=== PATIENT | female | born 1970 | race Caucasian/White ===

== ENCOUNTER 2017-07-19 16:39 | Outpatient (CLI) | payer MEDICARE, OTHER ==
[2017-07-19 17:29] LABS: #Eosinphils 0.2 thou/uL (0.0-0.7); #Lymphocytes 2.4 thou/uL (1.20-3.40); #Monocytes 0.5 thou/uL (0.11-0.59); #Neutrophils 3.5 thou/uL (1.40-6.50); %Basophils 0.6 % (0.0-1.0); %Eosinophils 2.3 % (0.0-10.0); %Lymphocytes 36.6 % (21.0-51.0); %Monocytes 7.2 % (0.0-10.0); Hematocrit 38.1 % (36.0-47.0); Mean Platelet Volume 7.6 fL (7.4-10.4); Red Blood Cell (RBC) Count 4.48 mill/uL (4.20-5.40); White Blood Cell (WBC) Count 6.6 thou/uL (4.8-10.8)
[2017-07-19 17:51] LABS: Anion Gap 13 mmol/L (10-20); BUN (Urea Nitrogen) 20 mg/dL (7.0-18.7); Calc. Creatinine Clearance 0 mL/min (70-130); Calcium 9.1 mg/dL (7.8-10.44); Carbon Dioxide 26 mmol/L (22-29); Chloride 106 mmol/L (98-107); Estimated GFR-MDRD Greater than 90
== END 2017-07-19 16:40 | disposition home or self-care (01) ==
LOC: LABBT 16:39
PROVIDERS: ATTEND Orthopaedic Surgery
DX: Z01.818 Encounter for other preprocedural examination (principal); M75.121 Complete rotator cuff tear or rupture of right shoulder, not specified as traumatic; M21.821 Other specified acquired deformities of right upper arm
CPT/HCPCS: 80048; 85025

== ENCOUNTER → 2017-07-26 | Day surgery (SDC) | payer MEDICARE, OTHER ==
[2017-07-19 16:54] VITALS: BMI 36.5
[~2017-07-26] MED LIST: Fentanyl 100 MCG/2 ML VIAL ONE; Fentanyl 100 MCG/2 ML VIAL SLOW IVP PRN; HYDROcodone/Acetaminophen 10/325 mg Tablet PO PRN; HYDROcodone/Acetaminophen 5/325 mg Tablet ONE; Ketorolac Tromethamine 30 MG/ML VIAL ONE; Lidocaine 2% PF 10 ML AMP (For Epidural Use) ONE; Midazolam HCl 2 mg/2 ml Vial ONE; Ondansetron HCl/PF 4 MG/2 ML Vial ONE; Propofol 200 MG/20 ML VIAL ONE; Ropivacaine 0.2% 550 ML 550 ML NERVE BLCK SCH; Ropivacaine 0.2% HCl/PF 20 ML ONE; ePHEDrine/0.9% NaCl/PF SYRINGE 50 mg/10 ml ONE; traMADol HCl 50 MG TAB PO PRN
--- NOTE | 2017-07-26 10:11 | RAD ---
PA AND LATERAL VIEWS CHEST: HISTORY: Preoperative evaluation. FINDINGS: The heart size is normal. The lungs are expanded without focal areas of consolidation, pneumothorax , or pleural effusions. There are mild degenerative changes in the spine. IMPRESSION: No radiographic evidence of acute cardiopulmonary process. POS: [facility]
--- NOTE | 2017-07-26 16:27 | OP ---
PREOPERATIVE DIAGNOSES: Right shoulder recurrent instability with dislocation, rotator cuff tear, b iceps tendinitis. POSTOPERATIVE DIAGNOSES: Right shoulder recurrent instability with dislocation, rotator cuff tear, biceps tendinitis. PROCEDURES: Open rotator cuff repair with acromioplasty, open subscapularis repair, open biceps ten odesis. SURGEON: Joaquin Farias MD [employer] ATTENDANT: Krish Watkins PA-C BLOOD LOSS: 150 mL DRAINS: None. COMPLICATIONS: None. DESCRIPTION OF PROCEDURE: The patient placed in a beach chair position. Ancef was given preoperati vely. I made a deltoid splitting incision. Anterior and inferior acromioplasty was performed. CA ligament was taken down. Bursal tissue was removed. She had a large rotator cuff tear, subscapular is was avulsed, and the biceps was unstable and detached the biceps from superior glenoid tubercle a nd reinforced about 1 inch with FiberWire suture, transected about another 3/4 inches from the bicep s tendon. I drilled a 7-mm hole in the bicipital groove and delivered the biceps tendon to the joo om of the hole and used a biceps tenodesis screw 7 x 23, perform biceps tenodesis. I mobilized the rotator cuff tear, I mobilized subscapularis tear, tagged them each and used blunt chandlers and May o scissors to free up the tissues. Once I got the tissue to an elastic consistency, I delivered the subscapularis down to fix this with FiberWire sutures. A total 4 FiberWire sutures were placed, th e subscapularis tied down to freshen bone. There was a Hill-Sachs lesion through the posterior port ion of the rotator cuff tear; however, there was fairly good cortical bone surrounded the Hill-Sachs lesion. I used a cottony Dacron suture to do a convergence type stitch beginning at the apex of th e rotator cuff tear. Sutures got down laterally over the Hill-Sachs lesion, then placed 2 corkscrew suture anchors and repaired tendon to freshened bone with a Pan-Cody type stitch. Overall this gave a very good watertight repair, reinforced with a double row using SwiveLock anchors x2. Irriga tion performed. Deltoid was repaired back to bone with #1 Ethibond, subcutaneous tissue closed with 2-0 Vicryl, and the skin was closed with nadeem. Sterile dressings applied. There were no compli cations.
--- NOTE | 2017-07-27 06:24 | EKG ---
Test Reason : PREOP Blood Pressure : / mmHG Vent. Rate : 060 BPM Atrial Rate : 060 BPM P-R Int : 164 ms QRS Dur : 100 ms QT Int : 424 ms P-R-T Axes : 074 033 043 degrees QTc Int : 424 ms Normal sinus rhythm with sinus arrhythmia Inferior infarct (cited on or before 28-JUL-2015)(Doubtful) Abnormal ECG When compared with ECG of 28-JUL-2015 14:07, Vent. rate has decreased BY 34 BPM Borderline criteria for Anterior infarct are no longer Present Borderline criteria for Anterolateral infarct are no longer Present QT has shortened Confirmed by DUONG KOTHARI ([id number]) on 07/27/2017 6:24:09 AM Referred By: NABIL Confirmed By:DUONG KOTHARI
== END ==
LOC: SDC 08:59
PROVIDERS: ATTEND Orthopaedic Surgery
PROC: 0LQ10ZZ Repair Right Shoulder Tendon, Open Approach (ICD-10-PCS; principal; 2017-07-26)
PROC: 0LS30ZZ Reposition Right Upper Arm Tendon, Open Approach (ICD-10-PCS; 2017-07-26)
PROC: 0RNJ0ZZ Release Right Shoulder Joint, Open Approach (ICD-10-PCS; 2017-07-26)
DX: M24.411 Recurrent dislocation, right shoulder (principal); M75.101 Unspecified rotator cuff tear or rupture of right shoulder, not specified as traumatic; M75.21 Bicipital tendinitis, right shoulder; M06.9 Rheumatoid arthritis, unspecified; D64.9 Anemia, unspecified; G43.909 Migraine, unspecified, not intractable, without status migrainosus; I10 Essential (primary) hypertension; M19.90 Unspecified osteoarthritis, unspecified site; E66.01 Morbid (severe) obesity due to excess calories; M54.9 Dorsalgia, unspecified; G89.29 Other chronic pain; Z68.36 Body mass index [BMI] 36.0-36.9, adult; Z79.52 Long term (current) use of systemic steroids; Z79.899 Other long term (current) drug therapy; Z98.84 Bariatric surgery status; Z86.11 Personal history of tuberculosis; Z87.442 Personal history of urinary calculi; Z91.81 History of falling
CPT/HCPCS: 23410; 23430; 71020; 93005; 96374; 97139; A4306; 93010; C1713; J1885; J2001; J2250; J2405; J2704; J2795; J3010

== ENCOUNTER 2019-09-06 14:09 | Emergency (ER) | payer MEDICARE, OTHER ==
[2019-09-06 14:50] LABS: Bacteria/HPF None Seen HPF (None Seen); Bilirubin Negative (Negative); Blood, Urine Trace (Negative); Clarity Clear (Clear); Glucose, Urine (Dipstick) Normal (Negative); Leukocyte 75 Leu/uL (Negative); Mucous/LPF Rare LPF (<2+); Nitrite Negative (Negative); Protein, Urine (Dipstick) Negative (Neg-Trace); Squamous Epithelial 0-3 HPF (0-3); Urobilinogen Normal mg/dL (Less than 2)
--- NOTE | 2019-09-06 15:15 | CT ---
ABDOMEN CT WITHOUT CONTRAST PELVIC CT WITHOUT CONTRAST: HISTORY: Pain. Urinary retention. COMPARISON: None. FINDINGS: Abdomen CT: Lung bases:Clear. Heart size: Normal heart size. No pericardial effusion. Aorta: Normal caliber. No periaortic fat stranding. Solid organs: Grossly unremarkable. Lymph nodes: No gastrohepatic, retrocrural or periportal lymphadenopathy. Gallbladder: Mildly distended. Mesentery: No mass, lymphadenopathy, free air or free fluid. Kidneys: Bilaterally, no hydronephrosis, nephrolithiasis or perinephric fat stranding. Bilateral uret ers have a normal caliber. No hydroureter, periureteral fat stranding or ureterolithiasis. Alimentary canal: Limited evaluation by the lack of oral contrast. Bariatric surgical changes are not ed. No obvious high-grade bowel obstruction. There is some focal dilatation of small bowel loops at the level of small bowel anastomosis, though this is nonspecific. Unremarkable ileocecal junction. No rmal caliber appendix. Scattered fecal material in a nondistended, nondilated colon. Diverticulosis, without evidence of diverticulitis. CT PELVIS: No mass, adenopathy, free air or free fluid. Grossly unremarkable uterus and adnexal. Urinary bladder: Unremarkable. Osseous structures: No lytic or blastic lesions. IMPRESSION: 1. No evidence of obstructive uropathy. 2. Evidence of previous bariatric surgical change with mild dilatation of small bowel loops at the le enmanuel of small bowel anastomosis. No evidence of obvious high-grade obstruction. Correlate clinically. 3. Normal caliber appendix. 4. Mild distention of the gallbladder. Right upper quadrant ultrasound if clinically warranted. Transcribed Date/Time: 09/06/2019 3:22 PM
[2019-09-06 15:59] LABS: #Eosinphils 0.1 thou/uL (0.0-0.7); #Lymphocytes 1.7 thou/uL (1.20-3.40); #Monocytes 0.5 thou/uL (0.11-0.59); #Neutrophils 3.6 thou/uL (1.40-6.50); %Basophils 0.8 % (0.0-1.0); %Eosinophils 1.3 % (0.0-10.0); %Monocytes 7.9 % (0.0-10.0); %Neutrophils 61.1 % (42.0-75.0); Hemoglobin 13.9 g/dL (12.0-16.0); Mean Corpuscular HGB CONC 33.4 g/dL (32.0-36.0); Mean Corpuscular Hemoglobin 30.5 pg (27.0-31.0); Mean Corpuscular Volume 91.2 fL (78.0-98.0); Platelet Count 246 thou/uL (130-400); RBC Distribution Width 11.6 % (11.5-14.5); Red Blood Cell (RBC) Count 4.54 mill/uL (4.20-5.40); White Blood Cell (WBC) Count 5.9 thou/uL (4.8-10.8)
[2019-09-06 16:19] LABS: ALT (SGPT) 28 U/L (8-55); AST (SGOT) 23 U/L (5-34); Albumin 4.7 g/dL (3.5-5.0); Alkaline Phosphatase 50 U/L (40-110); Anion Gap 12 mmol/L (10-20); BUN (Urea Nitrogen) 11 mg/dL (7.0-18.7); Bilirubin, Total 0.5 mg/dL (0.2-1.2); Calc. Creatinine Clearance 0 mL/min (70-130); Calcium 9.5 mg/dL (7.8-10.44); Carbon Dioxide 27 mmol/L (22-29); Chloride 104 mmol/L (98-107); Estimated GFR-MDRD 76; Globulin 2.9 g/dL (2.4-3.5); Glucose 98 mg/dL (70-105); Potassium 3.7 mmol/L (3.5-5.1); Protein, Total 7.6 g/dL (6.0-8.3); Sodium 139 mmol/L (136-145)
[2019-09-06] MEDS ORDERED: Lorazepam 2 MG/ML VIAL ONE (18:41)
--- NOTE | 2019-09-06 20:05 | MRI ---
MRI LUMBAR SPINE WITH AND WITHOUT IV CONTRAST: HISTORY: Patient with severe back pain and right hip pain. She was started back on methotrexate. Also has fever. FINDINGS: The conus medullaris ends at T12-L1 level. The vertebral body heights are maintained. Disc desiccatio n is noted at L3-4, L4-5 and L5-S1 levels. There is right-sided neural foraminal stenosis at L4-5 level. No significant central canal stenosis is seen. Facet hypertrophic changes are most prominent a t L4-5 and L5-S1 levels. No abnormal postcontrast enhancement is seen. No abnormal fluid collection is noted to suggest epidural abscess. The paraspinal musculature is normal. IMPRESSION: 1. No evidence of acute process. 2. Lumbar spondylosis with right-sided neural foraminal stenosis at L4-5 level.
== END 2019-09-06 21:12 | disposition home or self-care (01) ==
LOC: ERS 14:09
DX: N39.0 Urinary tract infection, site not specified (principal); Z79.899 Other long term (current) drug therapy
CPT/HCPCS: 36415; 51701; 72158; 74176; 80053; 81003; 81015; 85025; 87086; 96374; A4353; J2060

== ENCOUNTER 2019-12-02 09:45 | Outpatient (CLI) | payer MEDICARE, OTHER ==
--- NOTE | 2019-12-02 11:32 | RAD ---
EXAM: 3 views of the cervical spine HISTORY: Neck and shoulder pain COMPARISON: None FINDINGS: AP, lateral, and open mouth odontoid views of the cervical spine shows normal height and al ignment of the vertebral bodies and intervertebral discs without fracture or subluxation. No degenerative changes are seen. No prevertebral soft tissue swelling is seen. IMPRESSION: No significant cervical spine abnormality.
--- NOTE | 2019-12-02 12:07 | MRI ---
MRI CERVICAL SPINE WITHOUT CONTRAST: HISTORY: Bilateral shoulder and neck pain.. COMPARISON: None. FINDINGS: Appropriate T1 marrow signal intensity of the cervical vertebrae. Cervical spine vertebral body heig ht is maintained. No fracture. No significant STIR hyperintensity to suggest vertebral body edema or ligamentous injury. Visualized brain parenchyma, cervicomedullary junction, cervical cord and the upper thoracic cord hav e a normal signal intensity. C2-C3: No significant central canal stenosis or significant neural foraminal narrowing. C3-C4: Minimal broad-based disc bulge abuts the thecal sac. No significant central canal stenosis or significant neural foraminal narrowing. C4-C5: Minimal broad-based disc bulge abuts the thecal sac. No significant central canal stenosis or significant neural foraminal narrowing. C5-C6: No significant central canal stenosis or significant neural foraminal narrowing. C6-C7: Right paracentral disc herniation (0.3-0.4 cm) causes narrowing of the right subarticular zone and right neural foramen. There is no significant central canal stenosis. There is moderate to severe right neural foraminal narrowing. Left neural foramen is patent. C7-T1: Left and right paracentral disc bulges. No significant central canal stenosis. Bilaterally, ne ural foramina are patent. IMPRESSION: Right paracentral disc herniation at C6-C7. Moderate right neural foraminal narrowing at C6-C7. Adi elate for right C7 dermatome symptoms. Transcribed Date/Time: 12/02/2019 12:23 PM
== END 2019-12-02 09:46 | disposition home or self-care (01) ==
LOC: TBSIIMAG 09:45
PROVIDERS: ATTEND Family Medicine
DX: M47.812 Spondylosis without myelopathy or radiculopathy, cervical region (principal); M50.223 Other cervical disc displacement at C6-C7 level; M48.02 Spinal stenosis, cervical region
CPT/HCPCS: 72040; 72141

== ENCOUNTER 2019-12-18 06:06 | Day surgery (SDC) | payer MEDICARE, OTHER ==
[2019-12-09 12:01] VITALS: BMI 41.9
[2019-12-18] MEDS ORDERED: Fentanyl 100 MCG/2 ML VIAL ONE ×2 (06:36→07:06)
[2019-12-18] MEDS ORDERED: Lidocaine 1% (PF) 30 ML VIAL ONE (06:36)
[2019-12-18] MEDS ORDERED: Midazolam HCl 2 mg/2 ml Vial ONE (06:36)
[2019-12-18] MEDS ORDERED: Hydrocortisone Sod Succ/PF 100 mg/2 ml Vial ONE (06:52)
[2019-12-18] MEDS ORDERED: traMADol HCl 50 MG TAB PO PRN ×2 (07:18)
[2019-12-18] MEDS ORDERED: Acetaminophen 325 MG TAB PO PRN (07:18)
[2019-12-18] MEDS ORDERED: Promethazine HCl 25 MG/ML VIAL IM PRN (07:18)
[2019-12-18] MEDS ORDERED: Ondansetron PF 4 MG/2 ML Vial IVP PRN (07:18)
[2019-12-18] MEDS ORDERED: Ropivacaine 0.2% 550 ML 550 ML NERVE BLCK SCH (07:18)
[2019-12-18] MEDS ORDERED: Zolpidem Tartrate 5 MG TAB PO PRN (07:18)
[2019-12-18] MEDS ORDERED: HYDROcodone/Acetaminophen 10/325 mg Tablet PO PRN ×2 (07:18)
[2019-12-18] MEDS ORDERED: Fentanyl 100 MCG/2 ML VIAL SLOW IVP PRN (07:19)
--- NOTE | 2019-12-18 09:31 | OP ---
DATE OF PROCEDURE: 12/18/2019 TITLE OF PROCEDURES: 1. Left arthroscopic rotator cuff repair. 2. Subacromial decompression. ANESTHESIA: General. ESTIMATED BLOOD LOSS: Minimal. SPECIMENS: None. DRAINS: None. COMPLICATIONS: None. DESCRIPTION OF PROCEDURE: The patient was taken to the operating room where general anesthesia induced. The patient was placed in a right lateral decubitus position. Left arm was placed in 15 pounds of traction, prepped and draped in the usual sterile fashion. Scope was placed in the glenohumeral joint. There was no significant pathology in the joint other than a full-thickness rotator cuff tear. The scope was placed in the subacromial bursa. Bursectomy was performed. CA ligament was taken down. An anterior-inferior acromioplasty was performed. I mobilized the rotator cuff tear, debrided the greater tuberosity and the edge of the rotator cuff tear. Two corkscrew anchors were placed at the greater tuberosity. Four sutures were passed in the rotator cuff and tied down to good watertight repair, then reinforced with the double row repair. Shoulder was then drained. Portals were closed with nylon suture. Sterile dressings applied. Job ID: [id number]
[2019-12-18] MEDS ORDERED: Ropivacaine 0.5% HCl/PF (150 MG/30 ML VIAL) ONE (11:04)
[2019-12-18] MEDS ORDERED: Rocuronium Bromide 10 MG/ML (10ML VIAL) ONE (11:04)
[2019-12-18] MEDS ORDERED: PROPOFOL 200 MG/20 ML VIAL ONE (11:04)
[2019-12-18] MEDS ORDERED: Lidocaine 1% PF 5 ML VIAL ONE (11:04)
[2019-12-18] MEDS ORDERED: EPHEDRINE 25 MG/5 ML SYRINGE ONE (11:04)
[2019-12-18] MEDS ORDERED: Dexamethasone 20 MG/5 ML VIAL ONE (11:04)
[2019-12-18] MEDS ORDERED: Ropivacaine 0.2% HCl/PF (40 MG/20 ML VIAL) ONE (11:04)
[2019-12-18] MEDS ORDERED: Ondansetron PF 4 MG/2 ML Vial ONE (11:04)
[2019-12-18] MEDS ORDERED: HYDROcodone/Acetaminophen 5/325 mg Tablet ONE (11:23)
== END 2019-12-18 12:31 | disposition home or self-care (01) ==
LOC: SDC 06:06
PROVIDERS: ATTEND Orthopaedic Surgery
PROC: 0LQ24ZZ Repair Left Shoulder Tendon, Percutaneous Endoscopic Approach (ICD-10-PCS; principal; 2019-12-18)
PROC: 0RNK4ZZ Release Left Shoulder Joint, Percutaneous Endoscopic Approach (ICD-10-PCS; 2019-12-18)
PROC: 3E0T3BZ Introduction of Anesthetic Agent into Peripheral Nerves and Plexi, Percutaneous Approach (ICD-10-PCS; 2019-12-18)
DX: S46.012A Strain of muscle(s) and tendon(s) of the rotator cuff of left shoulder, initial encounter (principal); G89.18 Other acute postprocedural pain; M06.9 Rheumatoid arthritis, unspecified; I10 Essential (primary) hypertension; M19.90 Unspecified osteoarthritis, unspecified site; E66.01 Morbid (severe) obesity due to excess calories; Z68.41 Body mass index [BMI] 40.0-44.9, adult; Z79.899 Other long term (current) drug therapy; Z88.6 Allergy status to analgesic agent; Z98.84 Bariatric surgery status; X50.0XXA Overexertion from strenuous movement or load, initial encounter
CPT/HCPCS: 29826; 29827; 64416; 97139; A4306; C1713; J0690; J1100; J1720; J2001; J2250; J2405; J2704; J2795; J3010

== ENCOUNTER 2020-08-10 04:05 | Emergency (ER) | payer MEDICARE, OTHER ==
[2020-08-10 13:01] LABS: SARS-CoV-2 MS2 Positive; SARS-CoV-2 N Gene Negative; SARS-CoV-2 S Gene Negative; SARS-CoV-2 by NAA Not Detected (NotDetected); SARS-CoV-2 orf1ab Negative
== END 2020-08-10 04:20 | disposition home or self-care (01) ==
LOC: ERS 04:05
DX: Z20.828 Contact with and (suspected) exposure to other viral communicable diseases (principal); M19.90 Unspecified osteoarthritis, unspecified site; M06.9 Rheumatoid arthritis, unspecified
CPT/HCPCS: 87635; 99283; U0003

== ENCOUNTER 2020-08-14 14:34 | Emergency (ER) | payer MEDICARE, OTHER ==
--- NOTE | 2020-08-14 15:21 | RAD ---
Exam: XR Wrist 3 Rt View STANDARD HISTORY: Injury to right wrist after a fall. COMPARISON: None FINDINGS: There is a comminuted fracture involving the distal right radial metaphysis with intra-articular exte nsion of the fracture with slight intra-articular step-off and gap present. Vertically oriented as well as horizontal oriented fracture lucencies are seen. Mild separation of fracture fragments is pre sent. There is a tiny avulsion injury involving the ulnar styloid process. No additional fracture is visualized. Subcutaneous soft tissue swelling is seen about the wrist. IMPRESSION: 1. Comminuted fracture distal right radial metaphysis with intra-articular extension and minimal intr a-articular gap and step-off. 2. Avulsion injury ulnar styloid process. 3. Subcutaneous soft tissue swelling
[2020-08-14] MEDS ORDERED: Morphine 4 MG/ML VIAL ONE (15:51)
--- NOTE | 2020-08-14 16:29 | RAD ---
RIGHT ELBOW FOUR VIEWS: 08/14/20 HISTORY: Elbow injury. There is some mild arthritic change noted. There is no signs of fracture, dislocation or joint effusi on. IMPRESSION: No evidence of fracture. POS: [facility]
[2020-08-15 11:42] LABS: SARS-CoV-2 MS2 Positive; SARS-CoV-2 N Gene Negative; SARS-CoV-2 S Gene Negative; SARS-CoV-2 by NAA Not Detected (NotDetected); SARS-CoV-2 orf1ab Negative
== END 2020-08-14 18:02 | disposition home or self-care (01) ==
LOC: ERS 14:34
DX: S59.201A Unspecified physeal fracture of lower end of radius, right arm, initial encounter for closed fracture (principal); S52.571A Other intraarticular fracture of lower end of right radius, initial encounter for closed fracture; M19.90 Unspecified osteoarthritis, unspecified site; R06.9 Unspecified abnormalities of breathing; Z79.891 Long term (current) use of opiate analgesic; Z79.899 Other long term (current) drug therapy; W01.0XXA Fall on same level from slipping, tripping and stumbling without subsequent striking against object, initial encounter; Y92.002 Bathroom of unspecified non-institutional (private) residence as the place of occurrence of the external cause
CPT/HCPCS: 73080; 73110; U0003; 29125; 87635; 96374; J2270

== ENCOUNTER 2020-08-16 13:29 | Outpatient (CLI) | payer MEDICARE, OTHER ==
[2020-08-16 17:54] LABS: #Basophils 0.1 thou/uL (0.0-0.2); #Eosinphils 0.2 thou/uL (0.0-0.7); #Lymphocytes 1.7 thou/uL (1.20-3.40); #Monocytes 0.3 thou/uL (0.11-0.59); #Neutrophils 3.5 thou/uL (1.40-6.50); %Basophils 1.3 % (0.0-1.0); %Eosinophils 2.7 % (0.0-10.0); %Lymphocytes 29.3 % (21.0-51.0); %Monocytes 5.8 % (0.0-10.0); %Neutrophils 60.8 % (42.0-75.0); Hemoglobin 13.2 g/dL (12.0-16.0); Mean Corpuscular HGB CONC 32.6 g/dL (32.0-36.0); Mean Platelet Volume 7.9 fL (7.4-10.4); Platelet Count 260 thou/uL (130-400); RBC Distribution Width 12.8 % (11.5-14.5); Red Blood Cell (RBC) Count 4.39 mill/uL (4.20-5.40); White Blood Cell (WBC) Count 5.8 thou/uL (4.8-10.8)
[2020-08-16 18:34] LABS: Anion Gap 14 mmol/L (10-20); BUN (Urea Nitrogen) 20 mg/dL (9.8-20.1); Calc. Creatinine Clearance 0 mL/min (70-130); Calcium 8.9 mg/dL (7.8-10.44); Carbon Dioxide 21 mmol/L (22-29); Chloride 107 mmol/L (98-107); Estimated GFR-MDRD 90; Glucose 160 mg/dL (70-105); Potassium 4.4 mmol/L (3.5-5.1); Sodium 138 mmol/L (136-145)
[2020-08-17 11:07] LABS: SARS-CoV-2 MS2 Positive; SARS-CoV-2 N Gene Negative; SARS-CoV-2 S Gene Negative; SARS-CoV-2 by NAA Not Detected (NotDetected); SARS-CoV-2 orf1ab Negative
== END 2020-08-16 13:30 | disposition home or self-care (01) ==
LOC: LABBT 13:29
PROVIDERS: ATTEND Orthopaedic Surgery
DX: Z01.818 Encounter for other preprocedural examination (principal); S62.101A Fracture of unspecified carpal bone, right wrist, initial encounter for closed fracture; Z20.828 Contact with and (suspected) exposure to other viral communicable diseases
CPT/HCPCS: 80048; 85025; U0003; 87635; 93005; 93010

== ENCOUNTER 2020-08-20 07:34 | Day surgery (SDC) | payer MEDICARE, OTHER ==
[2020-08-19 11:12] VITALS: BMI 40.3
[2020-08-20] MEDS ORDERED: Fentanyl 100 MCG/2 ML VIAL ONE ×2 (08:12→09:08)
[2020-08-20] MEDS ORDERED: Midazolam HCl 2 mg/2 ml Vial ONE (08:12)
[2020-08-20] MEDS ORDERED: Fentanyl 100 MCG/2 ML VIAL SLOW IVP PRN (08:44)
[2020-08-20] MEDS ORDERED: Ropivacaine 0.2% 550 ML 550 ML NERVE BLCK SCH (08:45)
[2020-08-20] MEDS ORDERED: HYDROcodone/Acetaminophen 10/325 mg Tablet PO PRN ×2 (08:45)
[2020-08-20] MEDS ORDERED: Ondansetron PF 4 MG/2 ML Vial IVP PRN (08:45)
[2020-08-20] MEDS ORDERED: Zolpidem Tartrate 5 MG TAB PO PRN (08:45)
[2020-08-20] MEDS ORDERED: Promethazine HCl 25 MG/ML VIAL IM PRN (08:45)
[2020-08-20] MEDS ORDERED: traMADol HCl 50 MG TAB PO PRN ×2 (08:45)
[2020-08-20] MEDS ORDERED: Famotidine/PF 20 mg/2ml Vial ONE (09:08)
[2020-08-20] MEDS ORDERED: Dexamethasone 20 MG/5 ML VIAL ONE (10:05)
[2020-08-20] MEDS ORDERED: Ketorolac Tromethamine 30 MG/ML VIAL ONE (10:05)
[2020-08-20] MEDS ORDERED: PROPOFOL 200 MG/20 ML VIAL ONE (10:05)
[2020-08-20] MEDS ORDERED: Ropivacaine 0.5% HCl/PF (150 MG/30 ML VIAL) ONE (10:05)
[2020-08-20] MEDS ORDERED: Ropivacaine 0.2% HCl/PF (40 MG/20 ML VIAL) ONE (10:05)
[2020-08-20] MEDS ORDERED: Metoclopramide HCl 10 MG/2 ML VIAL ONE (10:05)
[2020-08-20] MEDS ORDERED: Lidocaine 1% PF 5 ML VIAL ONE (10:05)
[2020-08-20] MEDS ORDERED: Ondansetron PF 4 MG/2 ML Vial ONE (10:05)
--- NOTE | 2020-08-20 10:56 | RAD ---
RIGHT WRIST: Two fluoroscopic images are presented from the OR. INDICATION: Imaging during open reduction internal fixation procedure. FINDINGS/IMPRESSION: These images show plate and screws transfixing the distal radius. POS: [facility]
--- NOTE | 2020-08-20 11:10 | OP ---
DATE OF PROCEDURE: 08/20/2020 DICTATING FOR: Joaquin Farias MD. PREOPERATIVE DIAGNOSIS: Right distal radius metaphyseal intra-articular fracture. POSTOPERATIVE DIAGNOSIS: Right distal radius metaphyseal intra-articular fracture. PROCEDURE PERFORMED: Open reduction and internal fixation of right distal radius metaphyseal intra-articular fracture. DISPLAY SPECIALIST: Rai Yoder PA-C ANESTHESIA: General via LMA, augmented with indwelling supraclavicular block. COMPONENTS USED: Synthes 2.4 VALCP two-column volar distal radius plate, two hole. TOURNIQUET TIME: 26 minutes. FINDINGS: Distal radial metaphyseal fracture as noted on plain radiographs. ESTIMATED BLOOD LOSS: Less than 20. DRAINS: None. SPECIMENS: None. COMPLICATIONS: None. COUNTS: Correct. INDICATION FOR SURGERY: Alexandra is a 49-year-old female who sustained a right distal radius metaphyseal fracture. She fell on outstretched right forearm approximately a week and a half ago. She has elected to proceed with open reduction, and internal fixation for anatomic fixation and enhance healing and maximize function. PROCEDURE IN DETAIL: After informed consent was obtained in the preoperative holding area, the patient was taken to the operative suite and positioned appropriately on the operating table. The affected limb was then placed on an armboard and a well-padded tourniquet was placed over the proximal brachium. General anesthesia was induced and, once adequate anesthesia was obtained, the affected extremity was then prepped and draped in the usual sterile fashion. Prior to exsanguination, a time-out was called and all members of the surgical team agreed upon all pertinent positives to include site, surgeon, and patient for this particular case. Once completed, an Esmarch was then used to exsanguinate the extremity. Tourniquet was raised, where it remained for the remainder of the case. Please see tourniquet time. After exsanguination, a linear incision was made extending from the first crease of the wrist radially and extended 1 fingerbreadth off the radial margin and down to approximately 3.5 cm proximal. The Bovie electrocautery was used to control local bleeding. Tenotomy scissors were then used to divide the superficial subcuticular and subcutaneous layer with careful dissection. We then came down directly on the flexor carpi radialis. This was retracted ulnarly and blunt finger dissection was then used to identify the flexor pollicis longus and the brachial radialis. This interval was then developed bluntly with finger dissection down to the pronator quadratus. We allowed ourselves plenty of room proximally and distally to allow for the appropriate plate. The pronator quadratus was then identified. Small Hohmanns were placed radially to retract soft tissues and a 15 blade was then used to sharply dissect the radial border of the pronator quadratus. A periosteal elevator was then used to elevate the periosteum. This was then reflected both proximally and distally and held back with an [facility] blunt retractor. The fracture site was then identified. This was opened up, copiously irrigated, cleaned out with a tiny curet. All fracture fragments were then placed in their appropriate position and inline longitudinal traction and reduction of deforming force was then applied and provisional reduction was performed. Fluoroscopy was then brought into the field and we sized for the appropriate plate, which was then placed along the radial margin and provisionally pinned in place and the center variable cortical screw was placed and tightened down to hold reduction. Once this was completed, distal K-wires were then used to hold distal fragment reduction and we used combination of fixed and variable angle locking screws in the distal aspect of the fracture to maintain near anatomic reduction. After this was completed, we then turned attention to the proximal aspect of the plate. The appropriate nonlocking cortical screws were then drilled, measured and placed to allow for subcortical fixation without being long. This was checked in both AP and lateral planes with fluoroscopy. Being happy with our near anatomic reduction and plate placement and all appropriate screw holes tightened and locked, we then copiously irrigated the wound with normal saline. Primary closure was accomplished with 0 Vicryl with the pronator quadratus, which was reflected prior and then placed back along the radial margin. A small subcuticular layer was then placed with 3-0 interrupted Vicryl for provisional closure and skin closure was accomplished with 3-0 interrupted horizontal mattress nylon. A sterile dressing was applied. A volar splint was then placed. The procedure was terminated without any complication. Tourniquet was dropped. Please see tourniquet time above and the patient had good return of capillary refill in all digits and the splint was allowed to harden prior to moving the patient. The patient was awakened in the operative suite and taken to recovery room in stable condition. The acute care certified nursing assistant surgeon helped throughout the procedure by positioning the patient, stabilizing the limb, holding retractors, aligning the prosthesis, and closure of procedure site. The acute care certified nursing assistant/co-surgeon was present through the entire procedure and was responsible for providing exposure, tissue retraction and any necessary limb or tissue manipulation required to obtain necessary reduction or hardware placement. The acute care certified nursing assistant/co-surgeon also provided bleeding control, tissue closure, and suturing in conjunction with the primary surgeon. Job ID: [id number]
== END 2020-08-20 13:25 | disposition home or self-care (01) ==
LOC: SDC 07:34
PROVIDERS: ATTEND Orthopaedic Surgery
PROC: 0PSH04Z Reposition Right Radius with Internal Fixation Device, Open Approach (ICD-10-PCS; principal; 2020-08-20)
PROC: 3E0T3BZ Introduction of Anesthetic Agent into Peripheral Nerves and Plexi, Percutaneous Approach (ICD-10-PCS; 2020-08-20)
DX: S59.291A Other physeal fracture of lower end of radius, right arm, initial encounter for closed fracture (principal); G89.18 Other acute postprocedural pain; I10 Essential (primary) hypertension; M06.9 Rheumatoid arthritis, unspecified; G89.29 Other chronic pain; M54.9 Dorsalgia, unspecified; G47.33 Obstructive sleep apnea (adult) (pediatric); E66.01 Morbid (severe) obesity due to excess calories; Z68.41 Body mass index [BMI] 40.0-44.9, adult; Z79.52 Long term (current) use of systemic steroids; Z79.899 Other long term (current) drug therapy; Z88.6 Allergy status to analgesic agent; Z98.84 Bariatric surgery status; W19.XXXA Unspecified fall, initial encounter
CPT/HCPCS: 25608; 64416; 73110; 76000; A4306; C1713 ×3; J0690; J1100; J1885; J2250; J2405; J2704; J2765; J2795; J3010; S0028

== ENCOUNTER 2021-02-07 12:43 | Outpatient (CLI) | payer MEDICARE, OTHER | END 2021-02-07 12:44 | disposition home or self-care (01) | LOC: TBSIIMAG 12:43 | PROVIDERS: ATTEND Neurological Surgery | DX: M54.5 Low back pain (principal); M54.2 Cervicalgia; M47.816 Spondylosis without myelopathy or radiculopathy, lumbar region; M43.16 Spondylolisthesis, lumbar region; M47.812 Spondylosis without myelopathy or radiculopathy, cervical region; M50.223 Other cervical disc displacement at C6-C7 level; G03.9 Meningitis, unspecified | CPT/HCPCS: 72040; 72100; 72141; 72148 ==

== ENCOUNTER 2021-02-21 12:31 | Outpatient (CLI) | payer MEDICARE, OTHER ==
[2019-12-09 13:11] LABS: #Basophils 0.1 thou/uL (0.0-0.2); #Eosinphils 0.1 thou/uL (0.0-0.7); #Lymphocytes 2.5 thou/uL (1.20-3.40); #Monocytes 0.7 thou/uL (0.11-0.59); #Neutrophils 2.4 thou/uL (1.40-6.50); %Basophils 1.3 % (0.0-1.0); %Eosinophils 2.4 % (0.0-10.0); %Lymphocytes 42.4 % (21.0-51.0); %Monocytes 12.5 % (0.0-10.0); %Neutrophils 41.4 % (42.0-75.0); Hemoglobin 13.3 g/dL (12.0-16.0); Mean Corpuscular HGB CONC 32.4 g/dL (32.0-36.0); Mean Corpuscular Volume 89.5 fL (78.0-98.0); Mean Platelet Volume 7.9 fL (7.4-10.4); Platelet Count 293 thou/uL (130-400); RBC Distribution Width 12.4 % (11.5-14.5); Red Blood Cell (RBC) Count 4.57 mill/uL (4.20-5.40); White Blood Cell (WBC) Count 5.9 thou/uL (4.8-10.8)
[2019-12-09 13:38] LABS: Anion Gap 14 mmol/L (10-20); BUN (Urea Nitrogen) 16 mg/dL (9.8-20.1); Calc. Creatinine Clearance 0 mL/min (70-130); Calcium 9.2 mg/dL (7.8-10.44); Carbon Dioxide 26 mmol/L (22-29); Chloride 104 mmol/L (98-107); Glucose 99 mg/dL (70-105); Potassium 3.6 mmol/L (3.5-5.1); Sodium 140 mmol/L (136-145)
[2021-02-21 15:37] LABS: #Basophils 0.1 10x3/uL (0.0-0.2); #Eosinphils 0.1 10x3/uL (0.0-0.5); #Monocytes 0.3 10x3/uL (0.0-1.1); #Neutrophils 4.5 10x3/uL (1.5-8.4); %Basophils 0.8 % (0.0-2.0); %Eosinophils 1.9 % (0.0-6.0); %Lymphocytes 19.8 % (18.0-47.0); %Monocytes 4.5 % (0.0-10.0); %Neutrophils 72.5 % (40.0-75.0); Mean Corpuscular HGB CONC 31.3 g/dL (32.0-36.0); Mean Corpuscular Volume 92.5 fl (81.6-98.3); Mean Platelet Volume 10.6 fl (7.4-10.4); Platelet Count 279 10x3/uL (150-450); RBC Distribution Width 13.1 % (11.5-14.5); Red Blood Cell (RBC) Count 4.14 10x6/uL (3.90-5.03); White Blood Cell (WBC) Count 6.2 10x3/uL (3.5-10.5)
[2021-02-21 16:07] LABS: Anion Gap 17 mmol/L (10-20); BUN (Urea Nitrogen) 14 mg/dL (9.8-20.1); Calc. Creatinine Clearance 0 mL/min (70-130); Calcium 8.9 mg/dL (7.8-10.44); Carbon Dioxide 21 mmol/L (22-29); Chloride 105 mmol/L (98-107); Glucose 174 mg/dL (70-105); Potassium 4.5 mmol/L (3.5-5.1); Sodium 138 mmol/L (136-145)
[2021-02-22 02:13] LABS: SARS-CoV-2 PCR by NAA Not Detected (NotDetected)
== END 2021-02-21 12:32 | disposition home or self-care (01) ==
LOC: LABBT 12:31
PROVIDERS: ATTEND Orthopaedic Surgery
DX: Z01.818 Encounter for other preprocedural examination (principal); M75.102 Unspecified rotator cuff tear or rupture of left shoulder, not specified as traumatic; M77.9 Enthesopathy, unspecified; Z20.822 Contact with and (suspected) exposure to COVID-19
CPT/HCPCS: 80048 ×2; 85025 ×2; 93005 ×2; U0003; U0005; 93010

== ENCOUNTER 2021-02-27 13:02 | Inpatient (IN) | payer MEDICARE, OTHER ==
[~2021-02-27 13:02] MED LIST changes: -Fentanyl 100 MCG/2 ML VIAL ONE; -Fentanyl 100 MCG/2 ML VIAL SLOW IVP PRN; -HYDROcodone/Acetaminophen 10/325 mg Tablet PO PRN; -HYDROcodone/Acetaminophen 5/325 mg Tablet ONE; +Iopamidol 370 76% 50 ML VIAL FS ONE; +Iopamidol-370 76% 500 ML 1 ML ONE; -Ketorolac Tromethamine 30 MG/ML VIAL ONE; -Lidocaine 2% PF 10 ML AMP (For Epidural Use) ONE; -Midazolam HCl 2 mg/2 ml Vial ONE; -Ondansetron HCl/PF 4 MG/2 ML Vial ONE; -Propofol 200 MG/20 ML VIAL ONE; -Ropivacaine 0.2% 550 ML 550 ML NERVE BLCK SCH; -Ropivacaine 0.2% HCl/PF 20 ML ONE; -ePHEDrine/0.9% NaCl/PF SYRINGE 50 mg/10 ml ONE; -traMADol HCl 50 MG TAB PO PRN
[2021-02-27] MEDS ORDERED: Nitroglycerin 0.4 MG TAB 1 EACH ONE (13:43)
[2021-02-27 13:53] LABS: #Eosinphils 0.2 thou/uL (0.0-0.7); #Lymphocytes 1.6 thou/uL (1.20-3.40); #Monocytes 0.4 thou/uL (0.11-0.59); #Neutrophils 3.7 thou/uL (1.40-6.50); %Basophils 0.8 % (0.0-1.0); %Eosinophils 2.7 % (0.0-10.0); %Lymphocytes 27.1 % (21.0-51.0); %Monocytes 6.5 % (0.0-10.0); %Neutrophils 62.9 % (42.0-75.0); Hemoglobin 13.3 g/dL (12.0-16.0); Mean Corpuscular HGB CONC 32.9 g/dL (32.0-36.0); Mean Corpuscular Hemoglobin 30.1 pg (27.0-31.0); Mean Corpuscular Volume 91.5 fL (78.0-98.0); Mean Platelet Volume 8.2 fL (7.4-10.4); Platelet Count 265 thou/uL (130-400); Red Blood Cell (RBC) Count 4.44 mill/uL (4.20-5.40); White Blood Cell (WBC) Count 5.9 thou/uL (4.8-10.8)
[2021-02-27 13:56] LABS: Bilirubin Negative (Negative); Blood, Urine Negative (Negative); Clarity Clear (Clear); Glucose, Urine (Dipstick) Normal (Negative); Ketone, Urine Negative (Negative); Leukocyte Negative Leu/uL (Negative); Nitrite Negative (Negative); Protein, Urine (Dipstick) Negative (Neg-Trace); Specific Gravity, Urine 1.005 (1.002-1.036); Urobilinogen Normal mg/dL (Less than 2)
[2021-02-27 14:14] LABS: ALT (SGPT) 23 U/L (8-55); AST (SGOT) 22 U/L (5-34); Albumin 4.5 g/dL (3.5-5.0); Alkaline Phosphatase 49 U/L (40-110); Anion Gap 15 mmol/L (10-20); BUN (Urea Nitrogen) 12 mg/dL (9.8-20.1); Bilirubin, Total 0.7 mg/dL (0.2-1.2); Calc. Creatinine Clearance 0 mL/min (70-130); Calcium 10.3 mg/dL (7.8-10.44); Carbon Dioxide 26 mmol/L (22-29); Chloride 103 mmol/L (98-107); Globulin 3.2 g/dL (2.4-3.5); Glucose 133 mg/dL (70-105); Lipase 6 U/L (8-78); Potassium 3.7 mmol/L (3.5-5.1); Protein, Total 7.7 g/dL (6.0-8.3); Sodium 140 mmol/L (136-145)
[2021-02-27] MEDS ORDERED: HYDROcodone/Acetaminophen 10/325 mg Tablet ONE (14:49)
[2021-02-27] MEDS ORDERED: Ondansetron PF 4 MG/2 ML Vial IVP PRN (15:29)
[2021-02-27] MEDS ORDERED: Calcium Carbonate 500 MG ChewTAB PO PRN (15:29)
[2021-02-27] MEDS ORDERED: Senokot S 8.6-50 MG TAB PO PRN (15:29)
[2021-02-27] MEDS ORDERED: Nitroglycerin 0.4 MG TAB (25 Tab Bottle) SL PRN (15:29)
[2021-02-27] MEDS ORDERED: ALPRAZolam 0.5 MG TAB PO PRN (15:35)
[2021-02-27] MEDS ORDERED: Morphine 4 MG/ML VIAL SLOW IVP PRN (15:40)
[2021-02-27] MEDS ORDERED: Lidocaine 2% Viscous Solution 20 ML, Aluminum & Magnesium Hydroxide 30 ML, Donnatal Eli... SSW SCH (15:45)
[2021-02-27] MEDS ORDERED: Lorazepam 2 MG/ML VIAL SLOW IVP SCH (15:45)
[2021-02-27 16:29] VITALS: BMI 43.0
[2021-02-27] MEDS ORDERED: Lorazepam 2 MG/ML VIAL ONE (16:30)
[2021-02-27] MEDS: Sucralfate 1 GM TAB PO SCH ×2 (17:40→20:26)
[2021-02-27] MEDS: HYDROcodone/Acetaminophen 10/325 mg Tablet PO PRN (20:26)
[2021-02-27] MEDS: Acetaminophen 325 MG TAB PO PRN (20:28)
[2021-02-27] MEDS ORDERED: Pantoprazole 40 MG VIAL IVP SCH (21:00)
[2021-02-27] MEDS ORDERED: ACETAMINOPHEN PO PRN (21:03)
[2021-02-27] MEDS ORDERED: CODEINE PO PRN (21:03)
[2021-02-27] MEDS: Cyclobenzaprine 10 MG TAB PO PRN (21:56)
[2021-02-27] MEDS ORDERED: DULoxetine 30 MG CAP PO SCH (22:00)
[2021-02-27] MEDS ORDERED: traZODone HCl 50 MG TAB PO SCH (22:00)
[2021-02-27] MEDS ORDERED: Gabapentin 400 MG CAP PO SCH (22:00)
[2021-02-28] MEDS: HYDROcodone/Acetaminophen 10/325 mg Tablet PO PRN ×3 (04:30→23:01)
[2021-02-28 05:15] LABS: Hemoglobin A1c 5.2 % (4.0-6.0)
[2021-02-28 05:34] LABS: Cardiac Risk 2.6 (Less than 4.5)
[2021-02-28] MEDS: Acetaminophen ER (8hr) 650 MG TAB PO PRN ×2 (08:33→15:16)
[2021-02-28] MEDS: Sucralfate 1 GM TAB PO SCH ×5 (08:34→22:43)
[2021-02-28] MEDS: Gabapentin 400 MG CAP PO SCH ×3 (08:34→22:41)
[2021-02-28] MEDS: Cyclobenzaprine 10 MG TAB PO PRN (08:34)
[2021-02-28] MEDS ORDERED: Aspirin Chewable 81 MG TAB PO SCH (09:00)
[2021-02-28] MEDS: predniSONE 20 MG TAB PO SCH (11:14)
[2021-02-28] MEDS: Pantoprazole 40 MG VIAL IVP SCH ×2 (11:15→22:43)
[2021-02-28] MEDS: Leflunomide 10 mg Tablet PO SCH (11:15)
[2021-02-28] MEDS ORDERED: MELATONIN 10 MG PO SCH (21:00)
[2021-02-28] MEDS: DULoxetine 30 MG CAP PO SCH (22:41)
[2021-02-28] MEDS: traZODone HCl 50 MG TAB PO SCH (22:43)
[2021-03-01] MEDS: Sucralfate 1 GM TAB PO SCH ×4 (08:59→20:24)
[2021-03-01] MEDS: Pantoprazole 40 MG VIAL IVP SCH ×2 (09:00→20:25)
[2021-03-01] MEDS: Acetaminophen 325 MG TAB PO PRN (10:54)
[2021-03-01] MEDS: Gabapentin 400 MG CAP PO SCH ×4 (10:56→20:22)
[2021-03-01] MEDS: predniSONE 20 MG TAB PO SCH ×2 (10:56→11:38)
[2021-03-01] MEDS: Leflunomide 10 mg Tablet PO SCH (10:57)
[2021-03-01] MEDS ORDERED: Midazolam HCl 2 mg/2 ml Vial ONE (14:42)
[2021-03-01] MEDS ORDERED: PROPOFOL 200 MG/20 ML VIAL ONE (14:59)
[2021-03-01] MEDS ORDERED: Lidocaine 1% PF 5 ML VIAL ONE (14:59)
[2021-03-01] MEDS: HYDROcodone/Acetaminophen 10/325 mg Tablet PO PRN ×2 (16:30→21:39)
[2021-03-01] MEDS: DULoxetine 30 MG CAP PO SCH (20:24)
[2021-03-01] MEDS: traZODone HCl 50 MG TAB PO SCH (20:24)
[2021-03-02] MEDS: HYDROcodone/Acetaminophen 10/325 mg Tablet PO PRN (01:52)
[2021-03-02 05:30] LABS: Hemoglobin 13.2 g/dL (12.0-16.0); Mean Corpuscular HGB CONC 31.2 g/dL (32.0-36.0); Mean Corpuscular Hemoglobin 28.9 pg (27.0-31.0); Mean Corpuscular Volume 92.9 fL (78.0-98.0); Mean Platelet Volume 8.2 fL (7.4-10.4); Platelet Count 214 thou/uL (130-400); Red Blood Cell (RBC) Count 4.55 mill/uL (4.20-5.40); White Blood Cell (WBC) Count 4.2 thou/uL (4.8-10.8)
[2021-03-02] MEDS: Leflunomide 10 mg Tablet PO SCH (08:20)
[2021-03-02] MEDS: Sucralfate 1 GM TAB PO SCH (08:20)
[2021-03-02] MEDS: Pantoprazole 40 MG VIAL IVP SCH (08:20)
[2021-03-02] MEDS: Gabapentin 400 MG CAP PO SCH (08:20)
[2021-03-02] MEDS: predniSONE 20 MG TAB PO SCH (08:20)
[2021-03-02 08:27] VITALS: BP 131/66; TEMP 98.4
== END 2021-03-02 10:03 | disposition home or self-care (01) | DRG 381 ==
LOC: ERS 13:02 → ERHOLD 15:03 → 2SW 18:11 → OBSVTOIN 02-28 16:25
PROVIDERS: ADMIT Family Medicine; ATTEND Family Medicine
PROC: 0DJ08ZZ Inspection of Upper Intestinal Tract, Via Natural or Artificial Opening Endoscopic (ICD-10-PCS; principal; 2021-03-01)
DX: K28.9 Gastrojejunal ulcer, unspecified as acute or chronic, without hemorrhage or perforation (principal); Z68.41 Body mass index [BMI] 40.0-44.9, adult; K57.31 Diverticulosis of large intestine without perforation or abscess with bleeding; M19.90 Unspecified osteoarthritis, unspecified site; M32.9 Systemic lupus erythematosus, unspecified; M79.7 Fibromyalgia; M06.9 Rheumatoid arthritis, unspecified; G89.4 Chronic pain syndrome; E66.01 Morbid (severe) obesity due to excess calories; I08.1 Rheumatic disorders of both mitral and tricuspid valves; F41.9 Anxiety disorder, unspecified; Z98.84 Bariatric surgery status; Z88.6 Allergy status to analgesic agent; Z79.82 Long term (current) use of aspirin; Z79.52 Long term (current) use of systemic steroids
CPT/HCPCS: 36415; 71045; 74177; 76705; 78452; 80053; 80061; 81003; 83036; 83690; 83880; 84484; 85025; 85027; 85379; 87338; 93005; 93017; 93306; 96374; A9500; C9113; G0378; J0153; J2060; J2250; J2704; J7512; Q9967

== ENCOUNTER 2021-12-21 08:42 | Outpatient (CLI) | payer MEDICARE, OTHER | END 2021-12-21 08:43 | disposition home or self-care (01) | LOC: BICULT 08:42 | PROVIDERS: ATTEND Internal Medicine Gastroenterology | DX: R10.13 Epigastric pain (principal); K59.09 Other constipation; K76.0 Fatty (change of) liver, not elsewhere classified | CPT/HCPCS: 76705 ==

== ENCOUNTER 2022-01-20 05:57 | Day surgery (SDC) | payer MEDICARE, OTHER ==
[2022-01-18 10:20] VITALS: BMI 43.0
[2022-01-20] MEDS ORDERED: Fentanyl 100 MCG/2 ML VIAL ONE ×2 (07:17→09:41)
[2022-01-20] MEDS ORDERED: Acetaminophen 500 MG TAB ONE (07:21)
[2022-01-20] MEDS ORDERED: ceFAZolin (BATCH) 2 GM/100 ML BAG ONE (08:44)
[2022-01-20] MEDS ORDERED: Rocuronium Bromide 10 MG/ML (10ML VIAL) ONE (08:56)
[2022-01-20] MEDS ORDERED: Lidocaine 1% PF 5 ML VIAL ONE (08:56)
[2022-01-20] MEDS ORDERED: Ondansetron PF 4 MG/2 ML Vial ONE (08:56)
[2022-01-20] MEDS ORDERED: Dexamethasone 20 MG/5 ML VIAL ONE (08:56)
[2022-01-20] MEDS ORDERED: Succinylcholine 200 MG/10 ml SYRINGE FS ONE (08:56)
[2022-01-20] MEDS ORDERED: PROPOFOL 200 MG/20 ML VIAL ONE (08:56)
== END 2022-01-20 11:46 | disposition home or self-care (01) ==
LOC: SDC 05:57
PROVIDERS: ATTEND Urology
PROC: 0T7D8ZZ Dilation of Urethra, Via Natural or Artificial Opening Endoscopic (ICD-10-PCS; principal; 2022-01-20)
PROC: 0TBD7ZZ Excision of Urethra, Via Natural or Artificial Opening (ICD-10-PCS; 2022-01-20)
DX: N36.2 Urethral caruncle (principal); N35.92 Unspecified urethral stricture, female; M06.9 Rheumatoid arthritis, unspecified; R31.9 Hematuria, unspecified; R35.1 Nocturia; E66.01 Morbid (severe) obesity due to excess calories; Z68.41 Body mass index [BMI] 40.0-44.9, adult; Z79.52 Long term (current) use of systemic steroids; Z79.83 Long term (current) use of bisphosphonates; Z79.899 Other long term (current) drug therapy
CPT/HCPCS: 88305; 93005; 93010; J0690; J1100; J2405; J2704; J3010

== ENCOUNTER 2022-06-23 07:41 | Emergency (ER) | payer MEDICARE, OTHER ==
[2022-06-23 09:17] LABS: Bacteria/HPF None Seen HPF (None Seen); Bilirubin Negative (Negative); Blood, Urine Negative (Negative); Clarity Clear (Clear); Glucose, Urine (Dipstick) Normal (Negative); Ketone, Urine Negative (Negative); Leukocyte 75 Leu/uL (Negative); Nitrite Negative (Negative); Protein, Urine (Dipstick) 20 mg/dL (Neg-Trace); RBC/HPF 0-3 HPF (0-3); Specific Gravity, Urine 1.031 (1.002-1.036); Squamous Epithelial 0-3 HPF (0-3); Urobilinogen Normal mg/dL (Less than 2); WBC/HPF 21-50 HPF (0-3)
[2022-06-23] MEDS ORDERED: cefTRIAXone\\ROCEPHIN 1 GM VIAL ONE (09:37)
[2022-06-23] MEDS ORDERED: Lidocaine 1% PF 5 ML VIAL ONE (09:37)
== END 2022-06-23 09:48 | disposition home or self-care (01) ==
LOC: ERS 07:41
DX: N39.0 Urinary tract infection, site not specified (principal)
CPT/HCPCS: 81003; 81015; 87077; 87086; 96372; 99283; J0696

== ENCOUNTER 2022-09-19 12:13 | Outpatient (CLI) | payer OTHER, MEDICARE | END 2022-09-19 12:14 | disposition home or self-care (01) | LOC: BICULT 12:13 | PROVIDERS: ATTEND Urology | DX: N20.0 Calculus of kidney (principal); N35.92 Unspecified urethral stricture, female | CPT/HCPCS: 76770 ==

== ENCOUNTER 2022-12-20 13:39 | Outpatient (CLI) | payer MEDICARE, OTHER | END 2022-12-20 13:40 | disposition home or self-care (01) | LOC: BICMAMMO 13:39 | PROVIDERS: ATTEND Internal Medicine Rheumatology | DX: Z12.31 Encounter for screening mammogram for malignant neoplasm of breast (principal); M85.851 Other specified disorders of bone density and structure, right thigh; M85.852 Other specified disorders of bone density and structure, left thigh; M81.0 Age-related osteoporosis without current pathological fracture | CPT/HCPCS: 77063; 77067; 77080 ==